=== PATIENT | female | born 1950 | race Hispanic/Latino ===

== ENCOUNTER 2024-08-16 14:20 | Emergency (ER) | payer MEDICARE ==
[~2024-08-16] VITALS: Ht 157.5 cm; Wt 63.5 kg
--- NOTE | 2024-08-16 14:43 | ERN ---
ED Note History of Present Illness Stated Complaint: VOMITTING, DIARRHEA Chief Complaint: Abdominal Pain Time Seen by MD: 14:34 Dictation: PATIENT IS A 74-YEAR-OLD FEMALE COMING IN TODAY WITH COMPLAINTS OF NAUSEA VOMITING WITH DIARRHEA ONSET AT 03:00 THIS MORNING. SHE STATES SHE ONLY HAS A ABDOMINAL PAIN WHEN SHE IS VOMITING. NO FEVER NO CHILLS NO BACK PAIN NO CHANGE IN URINATION. STATES HER IS SICK WITH THE SAME COMPLAINTS. Allergies: Coded Allergies: codeine (Unverified Allergy, Intermediate, 08/16/24) meperidine (Unverified Allergy, Intermediate, 08/16/24) Past Medical History Past Medical History: Hypertension Surgical History: Other Surgical History Other: EYE History: Not Applicable RN Note Reviewed/Agreed w/PFSH: Yes Review of System Dictation CONSTITUTIONAL: Negative except for HPI HEAD/FACE: Negative except for HPI EENT: Negative except for HPI RESPIRATORY: Negative except for HPI GASTROINTESTINAL/ABDOMINAL: Negative except for HPI diffuse abdominal cramping GENITOURINARY: Negative except for HPI MUSCULOSKELETAL: Negative except for HPI INTEGUMENTARY: Negative except for HPI NEUROLOGICAL/PSYCH: Negative except for HPI HEMATOLOGIC/LYMPHATIC: Negative except for HPI All Systems Negative, Except as noted above. 13 point review of systems assessed and all negative except for above. Initial Vital Sign VS Vital Signs Date Time Temp Pulse Resp B/P (MAP) Pulse Ox O2 Delivery O2 Flow Rate FiO2 08/16/24 14:33 99.1 95 20 148/84 99 Room Air 0 08/16/24 15:11 21 Physical Exam Dictation Vital Signs reviewed General Appearance: Alert, oriented x 3, mild acute distress, well developed, nourished. Head and Face: non-traumatic. Eyes: PERRL, pink conjunctivas, eyelid no trauma, anterior chamber with arcus senilis. Ears: Pinnas intact and no signs of trauma or erythema ear canals clear and no discharge TM no erythema Nose: No discharge, no bleeding. Oropharynx: Mouth normal, tongue pink, pharynx clear,no erythema, tonsils no exudates, no abscesses noted, mucous membrane moist Neck: Supple, non-tender, no thyromegaly, no masses, no JVD, no bruits Breast:Deferred Chest:No tenderness, no crepitus, no paradoxical movement, no retractions Lungs:Clear, well-ventilated, symmetric, no rales, no wheezing, no rhonchi, no stridor, good breath sounds bilaterally Heart: Regular rate, regular rhythm, no murmur, no gallops Vascular: no peripheral edema, Abdomen: Soft, positive bowel sounds, nondistended, no guarding, nontender, no rebound, no masses no hepatomegaly, no splenomegaly, no Chavez's sign, no hernias. No focal tenderness Rectal: Deferred Genital: Deferred Neurological: Normal speech, motor function intact, sensory function intact Musculoskeletal: Neck nontender, full range of motion, back nontender, full range of motion, Extremities: nontender, full range of motion Skin: Color pink, dry, no turgor, no rash, no lacerations, no abrasions, no contusions. Lymphatic: Deferred Results (Laboratory/Radiology) Laboratory/Radiology Labs Reviewed?: Yes ED Course ED Course 1700/patient told RN that she was feeling better and wanted to go home. [employer] was involved in a code situation assisting ER MD. patient is signed out against medical advice. Medical Decision Making MDM Patient left against medical advice and signed forms DX & DISP Disposition: AMA Departure Impression: Primary Impression: Abdominal pain Condition: Against Medical Advice Time of Disposition: 17:27 I have reviewed the case, and I agree with, Diagnosis and Plan I performed the substantive portion of the visit. I have reviewed and personally made and approve the management plan that is documented in the notes by myself or the JESSICA. I acknowledge full responsibility for the patient's management plan. JOSELYN TUTTLE NP Aug 16, 2024 14:43 YEISON TYLER MD Aug 19, 2024 18:44
[2024-08-16] MEDS: ondanSETRON 4MG INJ IVP ONE (15:02)
[2024-08-16] MEDS: 0.9%NACL 1000ML 1,000 ML IV ONE (15:03)
[2024-08-16 15:06] LABS: ADD UA MICROSCOPIC YES; APPEARANCE,URINE CLOUDY (CLEAR); BILIRUBIN,URINE NEGATIVE (NEGATIVE); COLOR,URINE YELLOW (YELLOW); GLUCOSE, URINE (UA) NEGATIVE (NEGATIVE); KETONES,URINE NEGATIVE (NEGATIVE); LEUKOCYTE ESTERASE ,URINE 25 Leu/uL (NEGATIVE); NITRATE,URINE NEGATIVE (NEGATIVE); OCCULT BLOOD,URINE MODERATE (NEGATIVE); PROTEIN,URINE 30 mg/dL (NEGATIVE); UROBILINOGEN,URINE 0.2 mg/dL (0.2-1.0)
[2024-08-16 15:08] LABS: BACTERIA,URINE RARE /HPF (None Seen); MUCUS,URINE RARE LPF (None Seen); SQUAMOUS EPITHELIAL CELL,UR MOD /HPF (0-2)
[2024-08-16 15:30] LABS: BASOPHILS # (AUTO) 0.01 K/uL (0.00-0.20); BASOPHILS % (AUTO) 0.1 % (0.0-5.0); EOSINOPHILS # (AUTO) 0.01 K/uL (0.00-0.70); EOSINOPHILS % (AUTO) 0.1 % (0.0-8.0); HEMATOCRIT 39.5 % (36-48); IMMATURE GRANULOCYTE ABSOLUTE 0.03 K/uL (0-1); LYMPHOCYTES # (AUTO) 0.4 K/uL (1.0-4.8); LYMPHOCYTES % (AUTO) 3.4 % (21.0-51.0); MEAN CORPUSCULAR HEMOGLOBIN 32.8 pg (27.0-33.0); MEAN CORPUSCULAR HGB CONC 32.9 g/dL (32.0-36.0); MEAN CORPUSCULAR VOLUME 99.7 fL (79-99); MONOCYTES # (AUTO) 0.2 K/uL (0.1-1.0); MONOCYTES % (AUTO) 2.1 % (3.0-13.0); NEUTROPHILS # (AUTO) 9.7 K/uL (1.8-7.7); PLATELET COUNT (AUTO) 159 K/uL (130-400); RED BLOOD CELL COUNT(AUTO) 3.96 MIL/uL (4.00-5.50); RED CELL DISTRIBUTION WIDTH 13.3 % (11.0-15.5); WHITE BLOOD COUNT (AUTO) 10.4 K/uL (4.8-10.8)
[2024-08-16 15:34] LABS: CREATININE 0.8 mg/dL (0.5-1.0); POTASSIUM 3.6 mmol/L (3.5-5.1)
[2024-08-16 16:30] VITALS: BP 130/66; PULSE 66; RESP 17; TEMP 98; O2SAT 98
--- NOTE | 2024-08-16 17:05 | NUR ---
PATIENT LEFT AMA, I LET JOSELYN TUTTLE SPEECH AND HEARING CLINIC DIRECTOR KNOW AND HE SAID "OK" I DC'D PATIENTS IV WITH CATH STILL IN PLACE AND APPLIED 2X2 GAUZE WITH COBAN PATIENT AMBULATED OUT OF ER ACCOMPANIED BY , NO COMPLICATIONS
== END 2024-08-16 16:33 | disposition left against medical advice (07) ==
LOC: EDH 14:20
DX: R10.9 Unspecified abdominal pain (principal); I10 Essential (primary) hypertension; Z88.5 Allergy status to narcotic agent
CPT/HCPCS: 99283; 96374; 96361; 80048; 83690; 85025; 87086; 81001; 36415; J7030; J2405